=== PATIENT | female | born 1980 | race Caucasian/White ===

== ENCOUNTER 2016-11-21 23:59 | Emergency (ER) | payer MEDICAID, OTHER ==
[2016-11-21 23:59] VITALS: BMI 27.1
[2016-11-22 00:38] VITALS: RESP 20; O2SAT 100
--- NOTE | 2016-11-22 01:31 | C.PDOC ---
History Of Present Illness 36 year old patient presents to the ED complaining of diffuse rash to both arms , back, and hips since yesterday. She has not tried any OTC medications for it. Patient denies any new alergens - detergents/lotions/creams/unusual foods. She has no known allergies. Patient denies chest pain, shortness of breath, lip swelling, tongue swelling, or sensation of throat closing up. Time Seen by Provider: 11/22/16 00:59 Chief Complaint (Nursing): Abnormal Skin Integrity History Per: Patient History/Exam Limitations: no limitations Onset/Duration Of Symptoms: Days (1) Current Symptoms Are (Timing): Still Present Quality Of Symptoms: Itching Severity: Mild Past Medical History Reviewed: Historical Data, Nursing Documentation, Vital Signs Vital Signs: Last Vital Signs Temp 97.7 F 11/22/16 02:19 Pulse 65 11/22/16 02:19 Resp 20 11/22/16 02:19 BP 116/78 11/22/16 02:19 Pulse Ox 100 11/22/16 04:44 - Medical History PMH: No Chronic Diseases Family History: States: No Known Family Hx - Social History Hx Alcohol Use: Yes Hx Substance Use: No - Immunization History Hx Tetanus Toxoid Vaccination: No Hx Influenza Vaccination: No Hx Pneumococcal Vaccination: No Review Of Systems Except As Marked, All Systems Reviewed And Found Negative. Constitutional: Negative for: Fever, Chills ENT: Negative for: Throat Swelling, Other (lip swelling, tongue swelling) Cardiovascular: Negative for: Chest Pain Respiratory: Negative for: Cough, Shortness of Breath Skin: Positive for: Rash (to both arms, back and hips) Physical Exam - Physical Exam Appears: Well, Non-toxic, No Acute Distress, Other (uncomfortable & scratching) Skin: Warm, Dry, Rash (diffuse urticarial rash to upper extremities, back, hips and thigh area (+)blanching (+)non-vesicular) Head: Normacephalic Eye(s): bilateral: Normal Inspection Oral Mucosa: Moist Tongue: Normal Appearing, No Swelling Lips: Normal Appearing, No Swelling Throat: Normal, No Erythema, No Exudate, No Drooling Neck: Normal ROM, Supple Cardiovascular: Rhythm Regular Respiratory: Normal Breath Sounds, No Rales, No Rhonchi, No Wheezing Gastrointestinal/Abdominal: Normal Exam Back: Normal Inspection, No CVA Tenderness Extremity: Normal ROM Neurological/Psych: Oriented x3 Gait: Steady ED Course And Treatment O2 Sat by Pulse Oximetry: 100 (RA) Pulse Ox Interpretation: Normal Progress Note: Patient given PO Prednisone, Benadryl, Pepcid. Reevaluation Time: 01:45 Reassessment Condition: Improved (On reassessment, patient is resting comfortably and reports improvement of her symptoms. Patient given Rxs for prednisone and benadryl. She as instructed to follow up with PMD/clinic in 1-2 days, and understand she should return to ED if symptoms worsen.) Disposition Counseled Patient/Family Regarding: Diagnosis, Need For Followup, Rx Given - Disposition Referrals: [facility] [Outside] Disposition: HOME/ ROUTINE Disposition Time: :45 Condition: STABLE Additional Instructions: SEGUIMIENTO CON LANG DOCTOR / CLNICA EN 1-2 CHEUNG USE MEDICAMENTOS SEGN LO DIRIGIDO DEVUELVA A LA RYAN DE EMERGENCIA SI LOS SNTOMAS EMPEORARAN Prescriptions: DiphenhydrAMINE [Benadryl] 25 mg PO Q4H PRN #15 cap PRN Reason: allergies predniSONE [predniSONE Tab] 40 mg PO DAILY #6 tab Instructions: Urticaria (ED) Print Language: TAMAZIGHT - POA Present On Arrival: None - Clinical Impression Clinical Impression: Urticaria, Allergic reaction - Scribe Statement The provider has reviewed the documentation as recorded by the Scribe Concha Madrigal Provider Attestation: All medical record entries made by the Scribe were at my direction and personally dictated by me. I have reviewed the chart and agree that the record accurately reflects my personal performance of the history, physical exam, medical decision making, and the department course for this patient. I have also personally directed, reviewed, and agree with the discharge instructions and disposition.
[2016-11-22 02:21] VITALS: BP 116/78; PULSE 65; TEMP 97.7
== END 2016-11-22 02:21 | disposition home or self-care (01) ==
LOC: C.ER 23:59
DX: L50.0 Allergic urticaria (principal)

== ENCOUNTER 2017-11-09 17:02 | Emergency (ER) | payer OTHER ==
[2017-11-09 17:02] VITALS: BMI 27.1
[2017-11-09 17:19] VITALS: BP 114/75; PULSE 106; RESP 20; TEMP 101.4; O2SAT 100
--- NOTE | 2017-11-10 13:31 | CARD ---
APPROVED REPORT EKG Measurement Heart [id number] [place] 128P-19 [id number] <Conclusion> Normal sinus rhythm Left posterior fascicular block Cannot rule out Inferior infarct, age undetermined Abnormal ECG
== END 2017-11-09 17:21 | disposition left against medical advice (07) ==
LOC: C.ER 17:02
DX: Z02.89 Encounter for other administrative examinations (principal); R07.9 Chest pain, unspecified
CPT/HCPCS: 93005; LWBS0

== ENCOUNTER 2018-07-09 08:46 | Emergency (ER) | payer OTHER ==
[2018-07-09 08:47] VITALS: BMI 27.1
[2018-07-09 09:18] VITALS: O2SAT 98
[2018-07-09] MEDS ORDERED: Lidocaine 5% Patch TD STA (09:38)
[2018-07-09] MEDS ORDERED: Lidocaine 5% Patch TD ONE (09:50)
--- NOTE | 2018-07-09 10:48 | CT ---
Date of service: 07/09/2018 PROCEDURE: CT HEAD WITHOUT CONTRAST. HISTORY: Right-sided pain. COMPARISON: None available. TECHNIQUE: Axial computed tomography images were obtained through the head/brain without intravenous contrast. Radiation dose: Total exam DLP = 1036.21 mGy-cm. This CT exam was performed using one or more of the following dose reduction techniques: Automated exposure control, adjustment of the mA and/or kV according to patient size, and/or use of iterative reconstruction technique. FINDINGS: HEMORRHAGE: No acute parenchymal, subarachnoid or extra-axial hemorrhage. BRAIN: No mass effect or edema. No atrophy or chronic microvascular ischemic changes. VENTRICLES: Ventricles are slightly prominent though do not appear to be under tension. CALVARIUM: Calvarium intact. PARANASAL SINUSES: Unremarkable as visualized. No significant inflammatory changes. MASTOID AIR CELLS: Opacification seen in several of right posterior superior mastoid air cells; note that the possibility of incomplete excavation cannot be completely excluded. . OTHER FINDINGS: None. IMPRESSION: No acute intracranial hemorrhage. The
--- NOTE | 2018-07-09 11:05 | C.PDOC ---
History Of Present Illness 38 year old female with no medical problems presents to the ED complaining right shoulder pain radiating to her back for a few days. Pain is reproducible with movement and palpation. Also complains of right knee pain and right sided headache described as pounding. Denies any visual changes, lightheadedness, dizziness, weakness, numbness, fever, chills, or any other symptoms. Denies any trauma or injuries. Time Seen by Provider: 07/09/18 09:38 Chief Complaint (Nursing): Upper Extremity Problem/Injury History Per: Patient History/Exam Limitations: no limitations Onset/Duration Of Symptoms: Days Current Symptoms Are (Timing): Still Present Exacerbating Factor(s): Movement, Other (palpation) Past Medical History Reviewed: Historical Data, Nursing Documentation, Vital Signs Vital Signs: Last Vital Signs Temp 98.4 F 07/09/18 09:00 Pulse 77 07/09/18 09:00 Resp 20 07/09/18 09:00 BP 106/73 07/09/18 09:00 Pulse Ox 98 07/09/18 09:00 - Medical History PMH: No Chronic Diseases Surgical History: (x3) Family History: States: No Known Family Hx - Social History Hx Alcohol Use: Yes Hx Substance Use: No - Immunization History Hx Tetanus Toxoid Vaccination: No Hx Influenza Vaccination: No Hx Pneumococcal Vaccination: No Review Of Systems Except As Marked, All Systems Reviewed And Found Negative. Constitutional: Negative for: Fever, Chills Cardiovascular: Negative for: Light Headedness Musculoskeletal: Positive for: Shoulder Pain (right), Back Pain, Other (right knee pain ) Neurological: Positive for: Headache (right sided). Negative for: Dizziness Physical Exam - Physical Exam Appears: Non-toxic, No Acute Distress Skin: Warm, Dry Head: Normacephalic Eye(s): bilateral: Normal Inspection, PERRL, EOMI Oral Mucosa: Moist Neck: Normal ROM, Supple Chest: Symmetrical Cardiovascular: Rhythm Regular Respiratory: No Rales, No Rhonchi, No Wheezing Gastrointestinal/Abdominal: Soft, No Tenderness Back: No CVA Tenderness, No Muscle Spasm Extremity: Normal ROM, No Deformity, No Swelling Extremity: Bilateral: Atraumatic, Normal Color And Temperature, Normal ROM Neurological/Psych: Oriented x3, Normal Speech, Normal Cognition, Normal Cranial Nerves, Normal Motor, Normal Sensation, Normal Reflexes Gait: Steady ED Course And Treatment O2 Sat by Pulse Oximetry: 98 (RA) Pulse Ox Interpretation: Normal - CT Scan/US CT head Other Rad Studies (CT/US): Read By Radiologist, Radiology Report Reviewed CT/US Interpretation: Patient Name / ID : JEAN MARIE DEL RIO / [id number]. Exam Date : 07/09/2018 10:26:55 ( Approved ). Study Comment : Sex / Age : F / 38Y. Creator : Susan Jones. Dictator : Case Bruner MD. Security Lead : Pack Train Driver : Case Bruner MD. Approver2 : Report Date : 07/09/2018 10:32:20. My Comment : . Date of service: 07/09/2018. PROCEDURE: CT HEAD WITHOUT CONTRAST. HI STORY: Right-sided pain. COMPARISON: None available. TECHNIQUE: Axial computed tomography images were obtained through the head/brain without intravenous contrast. Radiation dose: Total exam DLP = 1036.21 mGy-cm. This CT exam was performed using one or more of the following dose reduction techniques: Automated exposure control, adjustment of the mA and/or kV according to patient size, and/or use of iterative reconstruction technique. FINDINGS: HEMORRHAGE: No acute parenchymal, subarachnoid or extra-axial hemorrhage. BRAIN: No mass effect or edema. No atrophy or chronic microvascular ischemic changes. VENTRICLES: Ventricles are slightly prominent though do not appear to be under tension. CALVARIUM: Calvarium intact. PARANASAL SINUSES: Unremarkable as visualized. No significant inflammatory changes. MASTOID AIR CELLS: Opacification seen in several of right posterior superior mastoid air cells; note that the possibility of incomplete excavation cannot be completely e xcluded. . OTHER FINDINGS: None. IMPRESSION: No acute intracranial hemorrhage. Medical Decision Making Medical Decision Making: Plan - Tylenol 975mg PO - Flexeril 10mmg PO - Motrin 600mg PO - Lidoderm patch CT head done because patient c/o hole right sided pain. Normal CT Neuro intact. feeling better Disposition Counseled Patient/Family Regarding: Studies Performed, Need For Followup, Rx Given - Disposition Disposition: HOME/ ROUTINE Disposition Time: 11:24 Condition: STABLE Additional Instructions: Siga con dangelo doctor o la clinica. No trabaje ni guie cuando estas tomando la medicine. Descanse regrese a la ferny de emergencia con cualquier otro problema. Prescriptions: diaZEpam [Valium] 5 mg PO TID #12 tab Ibuprofen [Motrin] 600 mg PO TID #15 tab Instructions: Muscle and Bone Pain (DC) Forms: [facility] (Polish), General Discharge Instructions, Work Excuse - POA Present On Arrival: None - Clinical Impression Clinical Impression: Muscle pain - Scribe Statement The provider has reviewed the documentation as recorded by the Scribe Melissa Rincon All medical record entries made by the Scribe were at my direction and personally dictated by me. I have reviewed the chart and agree that the record accurately reflects my personal performance of the history, physical exam, medical decision making, and the department course for this patient. I have also personally directed, reviewed, and agree with the discharge instructions and disposition.
[2018-07-09 11:19] VITALS: BP 111/73; PULSE 66; RESP 18; TEMP 98.2
--- NOTE | 2018-07-09 13:23 | RAD ---
Date of service: 07/09/2018 HISTORY: right sided chest pain COMPARISON: No prior. TECHNIQUE: Chest PA and lateral FINDINGS: LUNGS: No active pulmonary disease. PLEURA: No significant pleural effusion identified. No pneumothorax apparent. CARDIOVASCULAR: No aortic atherosclerotic calcification present. Normal cardiac size. No pulmonary vascular congestion. OSSEOUS STRUCTURES: No significant abnormalities. VISUALIZED UPPER ABDOMEN: Normal. OTHER FINDINGS: None. IMPRESSION: No active disease.
--- NOTE | 2018-07-10 17:15 | CARD ---
APPROVED REPORT Date of service: 07/09/2018 EKG Measurement Heart [id number] 132P-14 [id number] <Conclusion> Normal sinus rhythm Normal ECG
== END 2018-07-09 12:14 | disposition home or self-care (01) ==
LOC: C.ER 08:46
DX: M79.10 Myalgia, unspecified site (principal)